=== PATIENT | female | born 1995 | race Caucasian/White ===

== ENCOUNTER 2017-02-07 11:13 | Emergency (ER) | payer SELFPAY ==
[~2017-02-07] VITALS: Ht 162.6 cm; Wt 104.3 kg
--- NOTE | 2017-02-07 11:29 | PHYS DOC ---
General Chief Complaint: ABDOMINAL PAIN Stated Complaint: PELVIC/ABD PAIN Time Seen by MD: 11:14 Source: patient Exam Limitations: no limitations Problems: History of Present Illness Initial Comments Patient is a 22-year-old female who comes to the ED complaining of ovarian cyst recurrence. Patient states that for the past 2 days she's had left-sided adnexal and flank pain. She says this is consistent with her prior ovarian cyst symptoms. She denies bowel or bladder symptoms no fever chills sweats or myalgias no vaginal discharge or odor or other symptoms. Sepr-hfx-bhdlquk medications aren't helping patient has irregular menses as a baseline no PCP or regular operational risk analyst to follow up. Timing/Duration: 24 hours Severity: moderate Modifying Factors: improves with other Associated Symptoms: other Allergies: Coded Allergies: Penicillins (Verified Allergy, Severe, sob, 02/07/17) Past Medical History Medical History: other (ovarian cysts) Surgical History: tonsillectomy Social History Smoker: non-smoker Alcohol: none Drugs: none Review of Systems Constitutional: denies chills, denies diaphoresis, denies fever, denies malaise Respiratory: denies cough, denies shortness of breath Cardiovascular: denies chest pain, denies palpitations, denies syncope Gastrointestinal: see HPI, denies constipation, denies diarrhea, denies nausea , denies vomiting Genitourinary: see HPI, denies dysuria, denies frequency, denies hematuria Musculoskeletal: see HPI, denies back pain, denies joint swelling, denies neck pain Psychiatric/Neurological: denies headache, denies numbness, denies paresthesia Physical Exam General Appearance: WD/WN, obese Eyes: bilateral eye normal inspection, bilateral eye PERRL, bilateral eye EOMI Ear, Nose, Throat: hearing grossly normal, normal ENT inspection Neck: non-tender, supple Respiratory: normal breath sounds, no respiratory distress Gastrointestinal: normal bowel sounds, non tender, soft Back: no CVA tenderness, no vertebral tenderness Extremities: non-tender, normal inspection Neurologic/Psychiatric: 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 She would like to try conservative treatment to control symptoms if unsuccessful she agrees to return for further evaluation and treatment. She expressed agreement and understanding of treatment plan. Departure Time of Disposition: 12:19 Disposition: 01 HOME, SELF-CARE Diagnosis: Recurrance left ovarian cyst Condition: GOOD Patient Instructions: Ovarian Cyst, [id number] Additional Instructions: Off work today and note given. Aggressive hydration with Gatorade or water. Heating pad to affected area 15-20 minutes at a time every 4 hours. Peep-hsz-vqimcbm ibuprofen 600 mg every 6 hours for baseline discomfort. Prescription: Soldier 5 mg quantity 20 Follow-up with your operational risk analyst next week, call today to schedule appointment. Return to the ED with new or changing symptoms. BART CEDILLO DO Feb 07, 2017 11:29
[2017-02-07 12:05] LABS: AMORPHOUS SEDIMENT,UR PRESENT /HPF; BACTERIA,URINE 0 /HPF (0-FEW); BILIRUBIN,URINE NEG (NEG); CLARITY,URINE CLEAR; COLOR,URINE YELLOW; GLUCOSE,URINE NEG (NEG); NITRITE,URINE NEG (NEG); RBC,URINE RARE /HPF (0-2); SQUAMOUS EPITHELIAL CELL,UR FEW /LPF; UROBILINOGEN,URINE 0.2 mg/dL (0.2 mg/dL); WBC,URINE RARE /HPF (0-4)
[2017-02-07 12:35] VITALS: BP 126/87
== END 2017-02-07 12:35 | disposition home or self-care (01) ==
LOC: ER 11:13
DX: N83.202 Unspecified ovarian cyst, left side (principal); Z88.0 Allergy status to penicillin
CPT/HCPCS: 81001; 81025; 99283; 99284

== ENCOUNTER 2017-10-19 10:40 | Emergency (ER) | payer OTHER ==
[~2017-10-19] VITALS: Ht 162.6 cm; Wt 108.9 kg
--- NOTE | 2017-10-19 10:46 | PHYS DOC ---
Past History Past Medical History: No Pertinent History Past Surgical History: Tonsillectomy Alcohol Use: None Drug Use: None Adult General Chief Complaint Chief Complaint: SORE THROAT HPI HPI Patient is a 22 year old female who presents with sore throat. She states she's had a stuffy nose last couple days and then this morning woke up and sore throat. She states a very swallow and she couldn't swallow chicken and soup. She states her throat hurts so bad that it's hard for her to breathe especially with her stuffy nose. She denies any fevers chills nausea vomiting chest pain. She did try Chloraseptic spray this morning and gargle with some salt water but decided to come in to the ER. She presents approximate 4 hours after sore throat began. Review of Systems Review of Systems Constitutional: Denies fever or chills [] Eyes: Denies change in visual acuity, redness, or eye pain [] HENT: Positive for nasal congestion and sore throat Respiratory: Denies cough or shortness of breath [] Cardiovascular: No additional information not addressed in HPI [] GI: Denies abdominal pain, nausea, vomiting, bloody stools or diarrhea [] : Denies dysuria or hematuria [] Musculoskeletal: Denies back pain or joint pain [] Integument: Denies rash or skin lesions [] Neurologic: Denies headache, focal weakness or sensory changes [] Endocrine: Denies polyuria or polydipsia [] All other systems were reviewed and found to be within normal limits, except as documented in this note. Allergies Allergies Allergies Coded Allergies Type Severity Reaction Last Updated Verified Penicillins Allergy Severe sob 02/07/17 Yes Physical Exam Physical Exam Constitutional: Well developed, well nourished, no acute distress, non-toxic appearance. [] HENT: Normocephalic, atraumatic, bilateral external ears normal, oropharynx moist, no oral exudates, nose normal. Mild erythematous posterior pharynx, otherwise clear, no exudates appreciated, no cervical lymphadenopathy appreciated Eyes: PERRLA, EOMI, conjunctiva normal, no discharge. [] Neck: Normal range of motion, no tenderness, supple, no stridor. [] Cardiovascular:Heart rate regular rhythm, no murmur [] Lungs & Thorax: Bilateral breath sounds clear to auscultation [] Abdomen: Bowel sounds normal, soft, no tenderness, no masses, no pulsatile masses. [] Skin: Warm, dry, no erythema, no rash. [] Back: No tenderness, no CVA tenderness. [] Extremities: No tenderness, no cyanosis, no clubbing, ROM intact, no edema. [] Neurologic: Alert and oriented X 3, normal motor function, normal sensory function, no focal deficits noted. [] Psychologic: Affect normal, judgement normal, mood normal. [] EKG EKG [] Radiology/Procedures Radiology/Procedures [] Impressions: Sore throat Course & Med Decision Making Course & Med Decision Making Pertinent Labs and Imaging studies reviewed. (See chart for details) Physical exam is unremarkable. Strep throat negative. Return precautions given. Dragon Disclaimer Dragon Disclaimer This electronic medical record was generated, in whole or in part, using a voice recognition dictation system. Departure Departure: Impression: Primary Impression: Sore throat Disposition: HOME, SELF-CARE Condition: STABLE Referrals: ERIC SALGADO (PCP) Patient Instructions: Sore Throat Additional Instructions: You were seen today for your sore throat. Strep throat test was negative. You do not need antibiotics. This is likely secondary to your nasal congestion or a virus. You can use [id number] Beatriz they can purchase at the pharmacy. This will help dry out her nose. You can also use Tylenol and/or Advil for pain and discomfort. You can also use salt water gargles and Chloraseptic spray to help control your pain and discomfort. If you develop high fevers, can't swallow , can't breathe, we have other concerns please return back to ER otherwise you need to follow-up with her primary care physician within the next few days. You can take tramadol in addition to your other pain medicines. Scripts Tramadol Hcl (TRAMADOL HCL) 50 Mg Tablet 50 MG PO PRN Q6HRS Y for PAIN, #12 TAB Prov: АНДРЕЙ DEWITT MD 10/19/17 АНДРЕЙ DEWITT MD Oct 19, 2017 10:46
[2017-10-19 10:52] VITALS: BP 151/79
[2017-10-19] MEDS ORDERED: TRAM50TA PO (11:38)
== END 2017-10-19 11:47 | disposition home or self-care (01) ==
LOC: ER 10:40
DX: J02.9 Acute pharyngitis, unspecified (principal); Z88.0 Allergy status to penicillin
CPT/HCPCS: 87070; 87880; 99283

== ENCOUNTER 2020-02-22 15:52 | Emergency (ER) | payer SELFPAY ==
[~2020-02-22] VITALS: Ht 162.6 cm; Wt 133.6 kg
[~2020-02-22 15:52] MED LIST: TRAM50TA PO
[2020-02-22] MEDS ORDERED: CLIN300C8 PO (16:23)
[2020-02-22] MEDS ORDERED: HYDR-3165 PO (16:23)
--- NOTE | 2020-02-22 16:24 | PHYS DOC ---
Past History Past Medical History: No Pertinent History Past Surgical History: Other Alcohol Use: None Drug Use: None General Adult EDM: Chief Complaint: DENTAL PROBLEM HPI: HPI: Patient is a 25-year-old female with chronically poor dentition who presents with left-sided upper and lower dental pain and gum swelling. She states this is happened in the past. She states she is having difficulty eating because of the pain. Cold and hot makes it much worse. She denies any fever or noticeable facial swelling or redness. [] Review of Systems: Review of Systems: Constitutional: Denies fever or chills Eyes: Denies change in visual acuity HENT: Per HPI Respiratory: Denies cough or shortness of breath Cardiovascular: Denies chest pain or edema GI: Denies abdominal pain, nausea, vomiting, bloody stools or diarrhea : Denies dysuria Musculoskeletal: Denies back pain or joint pain Integument: Denies rash Neurologic: Denies headache, focal weakness or sensory changes Endocrine: Denies polyuria or polydipsia Lymphatic: Denies swollen glands Psychiatric: Reports anxiety Heart Score: Risk Factors: Risk Factors: DM, Current or recent (<one month) smoker, HTN, HLP, family history of CAD, obesity. Risk Scores: Score 0 - 3: 2.5% MACE over next 6 weeks - Discharge Home Score 4 - 6: 20.3% MACE over next 6 weeks - Admit for Clinical Observation Score 7 - 10: 72.7% MACE over next 6 weeks - Early Invasive Strategies Allergies: Allergies: Allergies Coded Allergies Type Severity Reaction Last Updated Verified Penicillins Allergy Severe sob 02/07/17 Yes Physical Exam: PE: Constitutional: Well developed, well nourished, n moderate distress, non-toxic appearance. [] HENT: Severe caries diffusely multiple cracked and avulsed teeth on the upper and lower left with surrounding gingival erythema no obvious dental abscess [] Eyes: PERRLA, EOMI, conjunctiva normal, no discharge. [] Neck: Normal range of motion, no tenderness, supple, no stridor. [] Cardiovascular:Heart rate regular rhythm, no murmur [] Lungs & Thorax: Bilateral breath sounds clear to auscultation [] Abdomen: Bowel sounds normal, soft, no tenderness, no masses, no pulsatile masses. [] Skin: Warm, dry, no erythema, no rash. [] Back: No tenderness, no CVA tenderness. [] Extremities: No tenderness, no cyanosis, no clubbing, ROM intact, no edema. [] Neurologic: Alert and oriented X 3, normal motor function, normal sensory function, no focal deficits noted. [] Psychologic: Affect normal, judgement normal, mood normal. [] EKG: EKG: [] Radiology/Procedures: Radiology/Procedures: [] Course & Med Decision Making: Course & Med Decision Making Pertinent Labs and Imaging studies reviewed. (See chart for details) [] Dragon Disclaimer: Dragon Disclaimer: This electronic medical record was generated, in whole or in part, using a voice recognition dictation system. Departure Departure: Impression: Primary Impression: Acute gingivitis Additional Impression: Dental infection Disposition: 01 HOME/RESIDENCE PRIOR TO ADM Condition: STABLE Referrals: PCPPAIGE (PCP) Patient Instructions: Dental Abscess, Dental Caries, Gingivitis Additional Instructions: It is imperative that you follow with a dentist as soon as possible. Scripts Hydrocodone Bit/Acetaminophen (NORCO 5-325 TABLET) 1 Each Tablet 1-2 TAB PO Q4-6HRS for PAIN, #15 TAB Prov: ELIZABETH VELÁZQUEZ DO 02/22/20 Clindamycin Hcl (CLINDAMYCIN HCL) 300 Mg Capsule 1 CAP PO TID for infection, #30 CAP Prov: ELIZABETH VELÁZQUEZ DO 02/22/20 Justification of Admission: Justification of Admission: Justification of Admission Dx: ELIZABETH Martinez DO Feb 22, 2020 16:24
[2020-02-22 18:47] VITALS: BP 157/84
== END 2020-02-22 16:46 | disposition home or self-care (01) ==
LOC: ER 15:52
DX: K05.00 Acute gingivitis, plaque induced (principal); K04.7 Periapical abscess without sinus; Z88.0 Allergy status to penicillin
CPT/HCPCS: 99283

== ENCOUNTER 2020-11-08 18:01 | Emergency (ER) | payer SELFPAY ==
[~2020-11-08] VITALS: Ht 162.6 cm; Wt 153.0 kg
[~2020-11-08 18:01] MED LIST changes: +CLIN300C9 PO; +HYDR-3165 PO
[2020-11-08 19:01] LABS: BASO # 0.1 x10^3/uL (0.0-0.2); BASO % 1 % (0-3); EOS # 0.3 x10^3/uL (0.0-0.7); EOS % 3 % (0-3); HEMATOCRIT 38.5 % (36.0-47.0); HEMOGLOBIN 12.8 g/dL (12.0-15.5); LYMPH # 2.3 x10^3/uL (1.0-4.8); LYMPH % 25 % (24-48); MEAN CORPUSCULAR HEMOGLOBIN 27 pg (25-35); MEAN CORPUSCULAR HGB CONC 33 g/dL (31-37); MEAN CORPUSCULAR VOLUME 80 fL (79-100); MONO # 0.5 x10^3/uL (0.0-1.1); MONO % 6 % (0-9); NEUT # 6.1 x10^3uL (1.8-7.7); NEUT % 66 % (31-73); PLATELET COUNT 341 x10^3/uL (140-400); WHITE BLOOD COUNT 9.3 x10^3/uL (4.0-11.0)
[2020-11-08 19:05] LABS: CALCIUM 8.8 mg/dL (8.5-10.1); CREATININE 0.7 mg/dL (0.6-1.0); GFR 100.4; POTASSIUM 3.8 mmol/L (3.5-5.1)
[2020-11-08 19:09] LABS: ALBUMIN 3.9 g/dL (3.4-5.0); ALBUMIN/GLOBULIN RATIO 0.9 (1.0-1.7); TOTAL BILIRUBIN 0.6 mg/dL (0.2-1.0); TOTAL PROTEIN 8.3 g/dL (6.4-8.2)
[2020-11-08] MEDS ORDERED: IOHEXOL 300 MG/ML 75 ML VIAL. IV ONE (19:15)
[2020-11-08] MEDS ORDERED: IV NORMAL SALINE 1,000ML 1,000 ML IV ONE (19:15)
--- NOTE | 2020-11-08 19:18 | PHYS DOC ---
Past History Past Medical History: Diabetes, Ovarian Cyst, Other Additional Past Medical Histor: PCOS, insulin resistance Past Surgical History: Tonsillectomy, Other Alcohol Use: None Drug Use: None General Adult EDM: Chief Complaint: ABDOMINAL PAIN HPI: HPI: 25-year-old female presents the emergency department for left-sided abdominal pain that began yesterday afternoon. Patient denies any traumatic event that caused abdominal pain. Patient states that the pain came in all of a sudden and was not relieved by taking Aleve or lying down. Patient states this feels like a flareup of PCOS that she has had in the past, the most recent time was around 3 years ago. Patient came into the emergency department today because the pain was unbearable. Patient was brought to the emergency department by her mother. Patient denies any nausea or vomiting rates the pain as a 6 out of 10 currently, at its worst it was a 9 out of 10. Patient denies radiation of pain. Patient denies any change in urination or bowel movements. Patient states that she has been on her period for 2 months. Patient does state that she has not seen a doctor for over 5 years regarding her PCOS and has recently gained 40 pounds. Patient denies any other medical conditions and says she is not sexually active. Review of Systems: Review of Systems: Constitutional: Denies fever or chills Eyes: Denies redness or eye pain HENT: Denies nasal congestion or sore throat Respiratory: Denies cough or shortness of breath Cardiovascular: Denies chest pain or palpitations GI: Reports abdominal pain denies nausea : Denies dysuria, reports hematuria Musculoskeletal: Denies back pain or joint pain Integument: Denies rash or skin lesions Neurologic: Denies headache, focal weakness or sensory changes Complete systems were reviewed and found to be within normal limits, except as documented in this note. Current Medications: Current Meds: Current Medications Medications (Trade) Dose Ordered Sig/Bruno Start Time Stop Time Status Last Admin Dose Admin Fentanyl Citrate (Fentanyl 2ml Vial) 50 mcg 1X ONCE 11/08/20 19:15 11/08/20 19:16 Iohexol (Omnipaque 300 Mg/ml) 75 ml 1X ONCE 11/08/20 19:15 11/08/20 19:16 Allergies: Allergies: Allergies Coded Allergies Type Severity Reaction Last Updated Verified Penicillins Allergy Severe sob 4/7/21 Yes Physical Exam: PE: Constitutional: Well developed, well nourished, no acute distress, non-toxic appearance HENT: Normocephalic, atraumatic Eyes: PERRL, EOMI, conjunctiva normal, no discharge Neck: Normal range of motion, no tenderness, supple Lungs & Thorax: No respiratory distress, equal chest rise and fall Abdomen: Soft, tenderness noted on the left side Skin: Warm, dry, no erythema, no rash Back: No tenderness, no CVA tenderness Extremities: No tenderness, ROM intact, no edema Neurologic: Alert and oriented X 3, normal motor function, normal sensory function, no focal deficits noted Psychologic: Affect normal, judgment normal Current Patient Data: Labs: Laboratory Tests Test 11/08/20 18:30 White Blood Count 9.3 x10^3/uL (4.0-11.0) Red Blood Count 4.80 x10^6/uL (3.50-5.40) Hemoglobin 12.8 g/dL (12.0-15.5) Hematocrit 38.5 % (36.0-47.0) Mean Corpuscular Volume 80 fL (79-100) Mean Corpuscular Hemoglobin 27 pg (25-35) Mean Corpuscular Hemoglobin Concent 33 g/dL (31-37) Red Cell Distribution Width 16.0 % (11.5-14.5) H Platelet Count 341 x10^3/uL (140-400) Neutrophils (%) (Auto) 66 % (31-73) Lymphocytes (%) (Auto) 25 % (24-48) Monocytes (%) (Auto) 6 % (0-9) Eosinophils (%) (Auto) 3 % (0-3) Basophils (%) (Auto) 1 % (0-3) Neutrophils # (Auto) 6.1 x10^3uL (1.8-7.7) Lymphocytes # (Auto) 2.3 x10^3/uL (1.0-4.8) Monocytes # (Auto) 0.5 x10^3/uL (0.0-1.1) Eosinophils # (Auto) 0.3 x10^3/uL (0.0-0.7) Basophils # (Auto) 0.1 x10^3/uL (0.0-0.2) Sodium Level 142 mmol/L (136-145) Potassium Level 3.8 mmol/L (3.5-5.1) Chloride Level 106 mmol/L (98-107) Carbon Dioxide Level 26 mmol/L (21-32) Anion Gap 10 (6-14) Blood Urea Nitrogen 9 mg/dL (7-20) Creatinine 0.7 mg/dL (0.6-1.0) Estimated GFR (Cockcroft-Gault) 100.4 BUN/Creatinine Ratio 13 (6-20) Glucose Level 105 mg/dL (70-99) H Calcium Level 8.8 mg/dL (8.5-10.1) Total Bilirubin 0.6 mg/dL (0.2-1.0) Aspartate Amino Transferase (AST) 37 U/L (15-37) Alanine Aminotransferase (ALT) 54 U/L (14-59) Alkaline Phosphatase 75 U/L (46-116) Total Protein 8.3 g/dL (6.4-8.2) H Albumin 3.9 g/dL (3.4-5.0) Albumin/Globulin Ratio 0.9 (1.0-1.7) L Lipase 237 U/L (73-393) Vital Signs: Vital Signs Date Time Temp Pulse Resp B/P (MAP) Pulse Ox O2 Delivery O2 Flow Rate FiO2 11/08/20 18:18 98.7 98 22 159/112 (128) 97 EKG: EKG: [] Radiology/Procedures: Radiology/Procedures: PROCEDURE: CT ABD PELV W/ IV CONTRST ONLY Study: CT abdomen/pelvis with intravenous contrast Indication: Left lower quadrant pain. History of PCOS. Comparison: None. Technique: Helical CT imaging performed of the abdomen and pelvis after the intravenous administration of 75 cc Omnipaque 300 contrast. Sagittal and coronal reformats were obtained. One or more of the following individualized dose reduction techniques were utilized for this examination: 1. Automated exposure control 2. Adjustment of the mA and/or kV according to patient size 3. Use of iterative reconstruction technique. Findings: Unremarkable visualized chest. Diffuse hepatic steatosis. The liver is prominent in size. Within normal limits gallbladder, biliary tree, pancreas and adrenal glands. The spleen is prominent in size at over 16 cm craniocaudal. Unremarkable kidneys and collecting system. Thickened endometrium but not atypical for patient age. Left ovarian cysts or a septated dominant cyst with the larger portion measuring 8.9 x 7.5 x 6.2 cm and the smaller 4.3 x 5.1 x 4.3 cm. Somewhat prominent right ovary likely with several follicles. The colon and appendix are within normal limits. Nonobstructed small bowel. Unremarkable stomach. Nonaneurysmal aorta. A few mildly prominent lymph nodes such as at the groin and iliac chain but favored reactive. No free fluid or pneumoperitoneum. Scattered mild body wall edema. No complex hernia. No acute or aggressive osseous process. Impression: 1. Either a dominant thinly septated cyst or two adjacent cysts arising for the left ovary with the larger cystic component measuring 8.9 x 7.5 x 6.2 cm and the smaller 4.3 x 5.1 x 4.3 cm. No surrounding edema or free pelvic fluid to suggest associated ovarian torsion. The uterus is within normal limits for patient age. No other abnormality at the left lower quadrant that would explain the patient's symptoms reportedly localizing to this region. 2. Hepatic steatosis and hepatosplenomegaly. Electronically signed by: RASHAUN SOOD MD (11/08/2020 7:38 PM) [facility] Heart Score: C/O Chest Pain: N/A Course & Med Decision Making: Course & Med Decision Making Pertinent Labs and Imaging studies reviewed. (See chart for details) [] Radha Disclaimer: Radha Disclaimer: This electronic medical record was generated, in whole or in part, using a voice recognition dictation system. 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 Scripts Hydrocodone Bit/Acetaminophen (HYDROCODONE-APAP 5-325 ) 1 Each Tablet 0.5-1 TAB PO PRN Q6HRS PRN for PAIN, #10 TAB 0 Refills Prov: MORENO MONDRAGON DO 11/08/20 MORENO MONDRAGON DO Nov 08, 2020 19:18
--- NOTE | 2020-11-08 19:41 | RAD ---
Study: CT abdomen/pelvis with intravenous contrast Indication: Left lower quadrant pain. History of PCOS. Comparison: None. Technique: Helical CT imaging performed of the abdomen and pelvis after the intravenous administratio n of 75 cc Omnipaque 300 contrast. Sagittal and coronal reformats were obtained. One or more of the following individualized dose reduction techniques were utilized for this examinat ion: 1. Automated exposure control 2. Adjustment of the mA and/or kV according to patient size 3. Use of iterative reconstruction technique. Findings: Unremarkable visualized chest. Diffuse hepatic steatosis. The liver is prominent in size. Within normal limits gallbladder, biliary tree, pancreas and adrenal glands. The spleen is prominent in size at over 16 cm craniocaudal. Unrema rkable kidneys and collecting system. Thickened endometrium but not atypical for patient age. Left ovarian cysts or a septated dominant cys t with the larger portion measuring 8.9 x 7.5 x 6.2 cm and the smaller 4.3 x 5.1 x 4.3 cm. Somewhat p rominent right ovary likely with several follicles. The colon and appendix are within normal limits. Nonobstructed small bowel. Unremarkable stomach. Nonaneurysmal aorta. A few mildly prominent lymph nodes such as at the groin and iliac chain but favo red reactive. No free fluid or pneumoperitoneum. Scattered mild body wall edema. No complex hernia. No acute or aggressive osseous process. Impression: 1. Either a dominant thinly septated cyst or two adjacent cysts arising for the left ovary with the larger cystic component measuring 8.9 x 7.5 x 6.2 cm and the smaller 4.3 x 5.1 x 4.3 cm. No surroundi ng edema or free pelvic fluid to suggest associated ovarian torsion. The uterus is within normal limi ts for patient age. No other abnormality at the left lower quadrant that would explain the patient's symptoms reportedly localizing to this region. 2. Hepatic steatosis and hepatosplenomegaly. Electronically signed by: RASHAUN SOOD MD (11/08/2020 7:38 PM) [facility]
[2020-11-08 21:32] LABS: BACTERIA,URINE 0 /HPF (0-FEW); BILIRUBIN,URINE NEG (NEG); CLARITY,URINE CLOUDY; COLOR,URINE PINK; GLUCOSE,URINE NEG (NEG); NITRITE,URINE NEG (NEG); RBC,URINE TNTC /HPF (0-2); SQUAMOUS EPITHELIAL CELL,UR MOD /LPF; UROBILINOGEN,URINE 0.2 mg/dL (0.2 mg/dL); WBC,URINE 0 /HPF (0-4)
[2020-11-08] MEDS ORDERED: HYDR-2155 PO (21:52)
[2020-11-08 21:55] VITALS: BP 124/73
[2020-11-08] MEDS ORDERED: HYDROcodone/APAP 5/325MG 1 TAB TABLET PO ONE (22:30)
== END 2020-11-08 21:55 | disposition home or self-care (01) ==
LOC: ER 18:01
DX: E28.2 Polycystic ovarian syndrome (principal); N83.202 Unspecified ovarian cyst, left side; N83.201 Unspecified ovarian cyst, right side; R10.2 Pelvic and perineal pain; E11.9 Type 2 diabetes mellitus without complications; Z88.0 Allergy status to penicillin
CPT/HCPCS: 36415; 74177; 80053; 81001; 83690; 83735; 85025; 96361; 96374; 99285; J3010; J7030; Q9967

== ENCOUNTER 2021-03-20 18:55 | Emergency (ER) | payer SELFPAY ==
[~2021-03-20] VITALS: Ht 162.6 cm; Wt 152.8 kg
[~2021-03-20 18:55] MED LIST changes: +HYDR-2155 PO
[2021-03-20] MEDS ORDERED: ACETAMINOPHEN 500 MG TABLET PO ONE (20:15)
[2021-03-20] MEDS ORDERED: IBUPROFEN 800 MG TABLET. PO ONE (20:15)
--- NOTE | 2021-03-20 20:30 | RAD ---
Three-view right shoulder and two-view right forearm dated 03/20/2021. No comparison available. CLINICAL INDICATION: Pain after fall. FINDINGS: 3 views the right shoulder show normal bony alignment. No displaced fracture. No periostitis or bone destruction. No acute osseous or articular abnormality. 2 views the right forearm show normal bony alignment. No displaced fracture. No periostitis or bone d estruction. IMPRESSION:. No acute findings. Electronically signed by: Bert Julian MD (03/20/2021 8:28 PM) [facility]
--- NOTE | 2021-03-20 20:31 | RAD ---
Two-view chest dated 03/20/2021 8:28 PM Comparison: None CLINICAL INDICATION: Pain after fall FINDINGS: PA and lateral views obtained. Heart and mediastinal contours within normal limits. Lungs are clear. No consolidation or pleural effusion. No pneumothorax. IMPRESSION: No acute radiographic abnormality. Electronically signed by: Bert Julian MD (03/20/2021 8:28 PM) [facility]
--- NOTE | 2021-03-20 20:56 | PHYS DOC ---
Past History Past Medical History: Diabetes, Ovarian Cyst, Other Additional Past Medical Histor: PCOS, insulin resistance Past Surgical History: Tonsillectomy, Other Smoking: Non-smoker Alcohol Use: None Drug Use: None Adult General Chief Complaint Chief Complaint: SHOULDER INJURY HPI HPI Patient is a 26-year-old female that presents with shoulder and forearm pain, 6 out of 10, dull and achy in nature after falling at home from standing. States that she is had some pain also with range of motion. States she took some Tylenol with minimal relief. Denies any other injuries. Review of Systems Review of Systems Review of systems otherwise unremarkable except noted in HPI Current Medications Current Medications Current Medications Medications (Trade) Dose Ordered Sig/Bruno Start Time Stop Time Status Last Admin Dose Admin Acetaminophen (Tylenol) 1,000 mg 1X ONCE 03/20/21 20:15 03/20/21 20:16 DC 03/20/21 20:20 1,000 MG Ibuprofen (Motrin) 800 mg 1X ONCE 03/20/21 20:15 03/20/21 20:16 DC 03/20/21 20:20 800 MG Allergies Allergies Allergies Coded Allergies Type Severity Reaction Last Updated Verified Penicillins Allergy Severe sob 03/20/21 Yes Physical Exam Physical Exam Constitutional: Well developed, well nourished, no acute distress, non-toxic appearance. [] HENT: Normocephalic, atraumatic, Eyes:conjunctiva normal, no discharge. [] Neck: Normal range of motion, no tenderness, supple, no stridor. [] Cardiovascular:Heart rate regular rhythm, no murmur [] Lungs & Thorax: Bilateral breath sounds clear to auscultation [] Abdomen: Bowel sounds normal, soft, no tenderness, no masses, no pulsatile masses. [] Skin: Warm, dry, no erythema, no rash. [] Back: No tenderness, no CVA tenderness. [] Extremities: Mild tenderness on range of motion of shoulder, and forearm with no obvious bruising, swelling or deformities. Neurovascular exam intact. Neurologic: Alert and oriented X 3, no focal deficits noted. [] Psychologic: Affect normal, judgement normal, mood normal. [] EKG EKG [] Radiology/Procedures Radiology/Procedures [] Heart Score C/O Chest Pain: No Risk Factors: Risk Factors: DM, Current or recent (<one month) smoker, HTN, HLP, family history of CAD, obesity. Risk Scores: Risk Factors: DM, Current or recent (<one month) smoker, HTN, HLP, family history of CAD, obesity. Course & Med Decision Making Course & Med Decision Making Patient is a 26-year-old female who presents with right arm pain after falling on Friday Vital signs not concerning. Physical exam noted above. Given Tylenol, ibuprofen and ice. Imaging with no acute osseous abnormalities. Discussed all findings with patient. Advised on pain management at home. Advised to follow-up in the morning with primary care physician. ' Gave strict return precautions to the ED. Patient grateful, verbalized understanding and agreed with plan of discharge. [] Dragon Disclaimer Dragon Disclaimer This electronic medical record was generated, in whole or in part, using a voice recognition dictation system. Departure Departure: Impression: Primary Impression: Shoulder pain Additional Impression: Right forearm pain Disposition: HOME / SELF CARE / HOMELESS Condition: GOOD Referrals: PCP,NO (PCP) NATHAN CAMPBELL MD Patient Instructions: RICE - Routine Care for Injuries Additional Instructions: Thank you for coming into the emergency department tonight and allowing us to take care of you. Please read all of the attached information above to go over things we discussed to manage your symptoms at home. As we discussed nothing was fractured or broken. Please follow-up in the morning with your primary care physician or call the physician at the number provided to establish care to set up a follow-up visit. Please come back to the ED with new or concerning symptoms as discussed. Problem Qualifiers RADHA DODGE MD Mar 20, 2021 20:56
[2021-03-20 21:00] VITALS: BP 136/84
== END 2021-03-20 21:04 | disposition home or self-care (01) ==
LOC: ER 18:55
DX: M79.631 Pain in right forearm (principal); M25.511 Pain in right shoulder; Z88.0 Allergy status to penicillin; E11.9 Type 2 diabetes mellitus without complications; W18.39XA Other fall on same level, initial encounter; Y93.89 Activity, other specified; Y92.098 Other place in other non-institutional residence as the place of occurrence of the external cause; Y99.8 Other external cause status
CPT/HCPCS: 71046; 73030; 73090; 99284